=== PATIENT | male | born 1940 | race Caucasian/White ===

== ENCOUNTER 2024-01-16 10:00 | Emergency (ER) | payer OTHER ==
[2024-01-16 12:23] LABS: CORONAVIRUS COVID-19 NAA NEGATIVE (NEGATIVE); INFLUENZA A NAA NEGATIVE (NEGATIVE); RESPIRATORY SYNCYTIAL VIR NAA NEGATIVE (NEGATIVE)
[2024-01-16 12:28] LABS: LACTIC ACID 1.2 mmol/L (0.4-2.0)
[2024-01-16] MEDS: Dextrose 5%-0.9% NaCl 1,000 ML IV SCH (12:30)
[2024-01-16 12:51] LABS: APPEARANCE,URINE SLT CLOUDY (Clear); BILIRUBIN,URINE 1+ (Negative); COLOR,URINE YELLOW (Yellow); GLUCOSE,URINE NEGATIVE (Negative); KETONES,URINE TRACE (Negative); LEUKOCYTE ESTERASE,URINE NEGATIVE (Negative); NITRITE,URINE NEGATIVE (Negative); OCCULT BLOOD,URINE 3+ (Negative); PROTEIN,URINE TRACE (Negative)
[2024-01-16 12:57] LABS: BASOPHILS PERCENT AUTO 0.3 % (0.0-1.0); EOSINOPHILS PERCENT AUTO 0.1 % (0.0-6.0); HEMATOCRIT 40.5 % (42.0-52.0); HEMOGLOBIN 13.4 gm/dl (14.0-18.0); IMMATURE GRAN ABSOLUTE AUTO 0.04 K/mm3 (0.00-0.05); IMMATURE GRAN PERCENT AUTO 0.4 % (0.0-0.4); LYMPHOCYTES ABSOLUTE AUTO 2.2 K/mm3 (1.0-4.8); LYMPHOCYTES PERCENT AUTO 23.1 % (24.0-44.0); MEAN CORPUSCULAR HEMOGLOBIN 29.8 pg (28.0-32.0); MEAN CORPUSCULAR HGB CONC 33.1 g/dl (32.0-36.0); MEAN PLATELET VOLUME 12.8 fl (9.4-12.4); MONOCYTES ABSOLUTE AUTO 1.4 K/mm3 (0.0-0.8); NEUTROPHILS ABSOLUTE AUTO 5.7 K/mm3 (1.8-7.7); NEUTROPHILS PERCENT AUTO 61.1 % (41.0-71.0); PLATELET COUNT,PLT 107 K/mm3 (150-400); WHITE BLOOD CELL COUNT,WBC 9.37 K/mm3 (3.9-11.3)
[2024-01-16 13:16] LABS: BACTERIA,URINE FEW /hpf (FEW); MUCUS,URINE FEW /hpf (FEW); SQUAMOUS EPITHELIAL CELLS,UR 0-5 /hpf (0-5); WBC,URINE 0-5 /hpf (0-5)
[2024-01-16 13:21] LABS: A/G RATIO 0.7 (1-2); ALBUMIN 2.9 g/dl (3.4-5.0); ANION GAP 13.7 (5-15); BILIRUBIN TOTAL 1.3 mg/dL (0.2-1.0); C-REACTIVE PROTEIN 5.89 mg/dL (<0.30); EST CRCL DRUG DOSING (CG) 57.79 mL/min; MAGNESIUM 1.7 mg/dL (1.8-2.4); POTASSIUM,K 3.7 mEq/L (3.5-5.1); PROTEIN TOTAL,TP 6.8 g/dl (6.4-8.2)
[2024-01-16] MEDS: Acetaminophen 325 MG Tab PO ONE (13:21)
[2024-01-16 13:37] LABS: SLIDE REVIEW ABNORMAL SMEAR
[2024-01-16] MEDS: Iopamidol 612 MG/ML 100 ML Bottle IVPUSH ONE (14:31)
[2024-01-16] MEDS: Sodium Chloride 0.9% 10 ML Syringe FLUSH PRN (14:31)
== END 2024-01-16 15:45 | disposition home or self-care (01) ==
LOC: JD.ED 10:00
DX: J40 Bronchitis, not specified as acute or chronic (principal); R79.82 Elevated C-reactive protein (CRP); E78.00 Pure hypercholesterolemia, unspecified; Z79.899 Other long term (current) drug therapy
CPT/HCPCS: 0241U; 36415; 71045; 74177; 80053; 81001; 83605; 83735; 83880; 84484; 85025; 86140; 87040; 93005; 96360; 99285; A9270; J3490; J7042; Q9967

== ENCOUNTER 2025-06-09 01:20 | Emergency (ER) | payer OTHER ==
[2025-06-09 01:48] LABS: BASOPHILS ABSOLUTE AUTO 0.0 K/mm3 (0.0-0.2); BASOPHILS PERCENT AUTO 0.2 % (0.0-1.0); EOSINOPHILS ABSOLUTE AUTO 0.0 K/mm3 (0.0-0.4); EOSINOPHILS PERCENT AUTO 0.1 % (0.0-6.0); IMMATURE GRAN ABSOLUTE AUTO 0.08 K/mm3 (0.00-0.05); IMMATURE GRAN PERCENT AUTO 0.5 % (0.0-0.4); LYMPHOCYTES ABSOLUTE AUTO 1.6 K/mm3 (1.0-4.8); LYMPHOCYTES PERCENT AUTO 10.0 % (24.0-44.0); MEAN PLATELET VOLUME 13.5 fl (9.4-12.4); MONOCYTES ABSOLUTE AUTO 0.8 K/mm3 (0.0-0.8); MONOCYTES PERCENT AUTO 5.1 % (0.0-8.0); NEUTROPHILS ABSOLUTE AUTO 13.7 K/mm3 (1.8-7.7); NEUTROPHILS PERCENT AUTO 84.1 % (41.0-71.0); NRBC ABSOLUTE 0.00 (0.00-0.02); NRBC PERCENT 0.0 % (0.0-0.2); PLATELET COUNT,PLT 120 K/mm3 (150-400); RED BLOOD CELL COUNT 5.23 M/mm3 (4.52-5.90); WHITE BLOOD CELL COUNT,WBC 16.33 K/mm3 (3.9-11.3)
[2025-06-09 02:09] LABS: A/G RATIO 1.0 (1-2); ALANINE AMINOTRANSFERASE,ALT 16.0 U/L (16-63); ASPARTATE AMNIOTRANSFERASE,AST 17.0 U/L (15-37); BILIRUBIN TOTAL 1.1 mg/dL (0.2-1.0); BLOOD UREA NITROGEN,BUN 23.0 mg/dL (7-18); CARBON DIOXIDE,CO2 29.0 mEq/L (21-32); CHLORIDE,CL 107.0 mEq/L (98-107); CREATININE 1.0 mg/dL (0.7-1.3); EST CRCL DRUG DOSING (CG) 56.78 mL/min; ESTIMATED GFR 74.0 mL/min (>60); GLUCOSE RANDOM 155.0 mg/dL (70-99); POTASSIUM,K 4.3 mEq/L (3.5-5.1); PROTEIN TOTAL,TP 7.4 g/dl (6.4-8.2); SODIUM,NA 143.0 mEq/L (136-145); TROPONIN I HIGH SENSITIVITY 23.0 pg/mL (<=76)
[2025-06-09 02:10] LABS: ETHANOL BLOOD MEDICAL 0.0 gm% (0.00)
[2025-06-09] MEDS: Sodium Chloride 0.9% 10 ML Syringe FLUSH PRN (03:16)
[2025-06-09] MEDS: Iopamidol 612 MG/ML 100 ML Bottle IVPUSH ONE (03:16)
== END 2025-06-09 04:00 | disposition home or self-care (01) ==
LOC: JD.ED 01:20
DX: I71.40 Abdominal aortic aneurysm, without rupture, unspecified (principal); Z79.899 Other long term (current) drug therapy; Z90.49 Acquired absence of other specified parts of digestive tract
CPT/HCPCS: 36415; 71045; 74177; 76705; 80053; 80307; 83690; 83735; 84484; 85025; 93005; 96374; 99284; A9270; J2470; J7030; Q9967